=== PATIENT | female | born 2000 | race Two or more races ===

== ENCOUNTER → 2021-01-17 | Outpatient (CLI) | payer SELFPAY | LOC: M LABSMTC 09:46 | PROVIDERS: ATTEND Pediatrics | DX: Z11.52 Encounter for screening for COVID-19 (principal) ==

== ENCOUNTER → 2021-02-11 | Outpatient (CLI) | payer SELFPAY | LOC: M LABSMTC 09:25 | PROVIDERS: ATTEND Pediatrics | DX: Z20.822 Contact with and (suspected) exposure to COVID-19 (principal) ==